=== PATIENT | female | born 1945 | race African-American/Black ===

== ENCOUNTER 2024-05-04 13:27 | Inpatient (IN) | payer OTHER ==
[~2024-05-04] VITALS: Ht 165.1 cm; Wt 72.1 kg
[2024-05-04] MEDS: ACETAMINOPHEN 325MG TABLET PO ONE (14:40)
[2024-05-04 17:37] LABS: BASOPHILS % 0.2 % (0.0-2.0); HEMATOCRIT. 30.7 % (36.0-48.0); HEMOGLOBIN. 10.3 g/dL (12.0-16.0); LYMPHOCYTES % 11.9 % (20.0-50.0); MEAN CORPUSCULAR HEMOGLOBIN 32.3 pg (28.0-32.0); MEAN CORPUSCULAR HGB CONC 33.4 g/dL (31.0-37.0); MEAN CORPUSCULAR VOLUME 96.7 fL (81.0-99.0); MEAN PLATELET VOLUME 7.3 fl (7.4-10.4); MONOCYTES % 8.5 % (2.0-8.0); NEUTROPHILS % 79.4 % (40.0-76.0); PLATELET 306 x1000/uL (130-400); RED BLOOD CELL COUNT 3.18 mill/uL (4.2-5.4); RED CELL DISTRIBUTION WIDTH 15.1 % (11.6-14.6); WHITE BLOOD COUNT 9.5 x1000/uL (4.5-11.0)
[2024-05-04 18:42] LABS: CHLORIDE 107 mEq/L (98-107); POTASSIUM 3.7 mEq/L (3.5-5.1); SODIUM 142 mEq/L (136-145)
[2024-05-04 18:43] LABS: CALCIUM 9.4 mg/dL (8.7-10.4); CARBON DIOXIDE 23 mEq/L (21-32)
[2024-05-04 18:48] LABS: CREATININE 1.1 mg/dL (0.6-1.0); GLUCOSE 115 mg/dL (70-105); UREA NITROGEN BLOOD 29 mg/dL (9-23)
[2024-05-04] MEDS: MORPHINE SULFATE 4 MG/ML INJ (FOR IV/IM USE) IV ONE (18:49)
[2024-05-04 18:50] LABS: ALANINE AMINOTRANSFERASE 58 IU/L (10-49); ALBUMIN 3.5 g/dL (3.2-4.8); ASPARTATE AMINOTRANSFERASE 123 IU/L (<34); CREATINE KINASE > 1300 IU/L (34-145)
[2024-05-04 18:51] LABS: PROTEIN TOTAL 7.1 g/dL (6.0-8.3); TROPONIN I HIGH SENSITIVITY 36 ng/L (3.0-34)
[2024-05-04] MEDS: LACTATED RINGERS 1,000 ML IV SCH ×2 (20:25→21:20)
[2024-05-04] MEDS ORDERED: ONDANSETRON HCL 4MG/2ML INJ IV PRN (20:45)
[2024-05-04] MEDS ORDERED: MAGNESIUM/ALUMINUM HYDROXIDE/SIMETHICONE 30ML UDC PO PRN (20:45)
[2024-05-04] MEDS ORDERED: DOCUSATE SODIUM 100MG CAPSULE PO PRN (20:45)
[2024-05-04] MEDS ORDERED: GUAIFENESIN 200MG/10ML SUGAR FREE UDC PO PRN (20:45)
[2024-05-04] MEDS ORDERED: ACETAMINOPHEN 325MG TABLET PO PRN (20:45)
[2024-05-04] MEDS ORDERED: IPRATROPIUM/ALBUTEROL 0.5-3(2.5)MG/3ML NEB HHN PRN (20:45)
[2024-05-04 21:16] LABS: TROPONIN I HIGH SENSITIVITY 42 ng/L (3.0-34)
[2024-05-04 21:25] LABS: IRON 12 ug/dL (50-170)
[2024-05-04 21:28] LABS: PHOSPHORUS 1.8 mg/dL (2.5-4.9); TOTAL IRON BINDING CAPACITY 157 ug/dl (250-425)
[2024-05-04 21:31] LABS: FERRITIN 154 ng/mL (10-291); FOLIC ACID (FOLATE) SERUM > 20.00 ng/mL (>5.38); VITAMIN B12 SERUM 805 pg/mL (211-911)
[2024-05-04] MEDS: ENOXAPARIN 40MG/0.4ML SYR SUBCUT SCH (21:31)
[2024-05-04] MEDS: CLONIDINE 0.1MG TABLET PO PRN (21:42)
[2024-05-04] MEDS: AMLODIPINE 5MG TABLET PO SCH (21:45)
[2024-05-04] MEDS ORDERED: IOHEXOL-300 100 ML BOTTLE ONE (23:22)
[2024-05-05] VITALS (7 sets, daily range): BP systolic 119–172; BP diastolic 70–85; PULSE 59–152; RESP 15–20; TEMP 98.6–98.9; O2SAT 18
[2024-05-05 01:22] LABS: TROPONIN I HIGH SENSITIVITY 33 ng/L (3.0-34)
[2024-05-05 01:33] LABS: CREATINE KINASE 1795 IU/L (34-145)
[2024-05-05] MEDS: MAGNESIUM 4 G PREMIX 100 ML IV NR (06:39)
[2024-05-05] MEDS: POTASSIUM PHOSPHATE 30 MMOL in SODIUM CHLORIDE 0.9% 490 ML IV NR (06:40)
[2024-05-05 06:51] LABS: CHLORIDE 109 mEq/L (98-107); POTASSIUM 3.8 mEq/L (3.5-5.1); SODIUM 144 mEq/L (136-145)
[2024-05-05 06:52] LABS: CALCIUM 9.3 mg/dL (8.7-10.4); CARBON DIOXIDE 27 mEq/L (21-32)
[2024-05-05] MEDS: ACETAMINOPHEN 325MG TABLET PO PRN (06:53)
[2024-05-05 06:57] LABS: GLUCOSE 96 mg/dL (70-105); TRIGLYCERIDE 66 mg/dL (0-150); UREA NITROGEN BLOOD 28 mg/dL (9-23)
[2024-05-05 06:58] LABS: LDL CHOLESTEROL 81 mg/dL (5-100)
[2024-05-05 06:59] LABS: ALANINE AMINOTRANSFERASE 57 IU/L (10-49); ALBUMIN 3.7 g/dL (3.2-4.8); ASPARTATE AMINOTRANSFERASE 97 IU/L (<34); CHOLESTEROL 165 mg/dL (<200); HDL CHOLESTEROL 58 mg/dL (>65); TROPONIN I HIGH SENSITIVITY 32 ng/L (3.0-34)
[2024-05-05 07:00] LABS: BILIRUBIN TOTAL 0.9 mg/dL (0.1-1.0); PROTEIN TOTAL 7.1 g/dL (6.0-8.3)
[2024-05-05 07:01] LABS: T4 FREE 1.38 ng/dL (0.89-1.76)
[2024-05-05 07:02] LABS: THYROID STIMULATING HORMONE 2.32 uIU/mL (0.55-4.78)
[2024-05-05 07:14] LABS: CREATINE KINASE 1526 IU/L (34-145)
[2024-05-05 07:15] LABS: BASOPHILS % 0.2 % (0.0-2.0); EOSINOPHILS % 0.5 % (0.0-5.0); HEMATOCRIT. 29.2 % (36.0-48.0); HEMOGLOBIN. 9.7 g/dL (12.0-16.0); LYMPHOCYTES % 17.7 % (20.0-50.0); MEAN CORPUSCULAR HEMOGLOBIN 31.7 pg (28.0-32.0); MEAN CORPUSCULAR HGB CONC 33.1 g/dL (31.0-37.0); MONOCYTES % 11.3 % (2.0-8.0); NEUTROPHILS % 70.3 % (40.0-76.0); PLATELET 315 x1000/uL (130-400); RED BLOOD CELL COUNT 3.04 mill/uL (4.2-5.4); RED CELL DISTRIBUTION WIDTH 15.3 % (11.6-14.6); WHITE BLOOD COUNT 7.4 x1000/uL (4.5-11.0)
[2024-05-05] MEDS: THIAMINE HCL 100MG TABLET PO SCH (08:58)
[2024-05-05 12:46] LABS: TROPONIN I HIGH SENSITIVITY 22 ng/L (3.0-34)
[2024-05-05 12:47] LABS: CREATINE KINASE 1290 IU/L (34-145)
[2024-05-05 13:45] LABS: CLARITY URINE CLEAR (CLEAR); COLOR URINE DARK YELLOW (YELLOW); GLUCOSE URINE NEGATIVE (NEGATIVE); KETONES URINE TRACE (NEGATIVE); LEUKOCYTE ESTERASE URINE 1+ (NEGATIVE); NITRITE URINE NEGATIVE (NEGATIVE); OCCULT BLOOD URINE TRACE (NEGATIVE); PH URINE 5.5 (4.5-8.0); PROTEIN URINE 1+ (NEGATIVE); SPECIFIC GRAVITY URINE 1.045 (1.005-1.030)
[2024-05-05 14:02] LABS: *AMPHETAMINES SCREEN URINE NEGATIVE (NEGATIVE); *BARBITURATES SCREEN URINE NEGATIVE (NEGATIVE); *BENZODIAZEPINES SCREEN URINE NEGATIVE (NEGATIVE); *COCAINE SCREEN URINE NEGATIVE (NEGATIVE); CANNABINOID URINE SCREEN NEGATIVE (NEGATIVE); METHADONE URINE SCREEN NEGATIVE (NEGATIVE); OPIATES URINE SCREEN PRESUMPTIVE POSITIVE (NEGATIVE); PHENCYCLIDINE URINE SCREEN NEGATIVE (NEGATIVE)
[2024-05-05 14:03] LABS: ECSTASY MDMA SCREEN URINE NEGATIVE (NEGATIVE)
[2024-05-05 14:13] LABS: CALCIUM OXALATE CRYSTALS URINE 1+ /lpf; SQUAMOUS EPITHELIAL CELL URINE 1+ /lpf (RARE/1+)
[2024-05-05 14:14] LABS: BACTERIA URINE 3+; RBC URINE 0-2 /hpf (0-2)
[2024-05-05] MEDS ORDERED: GABA-532 PO (14:38)
[2024-05-05] MEDS: CEFTRIAXONE 1GM/50ML 50 ML IV SCH (18:29)
== END 2024-05-05 19:06 | disposition short-term general hospital (02) | DRG 557 ==
LOC: ER 13:27 → 5WST 19:20 → EDBEDREQTM 19:24 → EDBEDREQ 19:24 → 3WST 05-05 04:44
PROVIDERS: ADMIT Internal Medicine; ATTEND Internal Medicine
DX: M62.82 Rhabdomyolysis (principal); I21.A1 Myocardial infarction type 2; N17.0 Acute kidney failure with tubular necrosis; M48.56XA Collapsed vertebra, not elsewhere classified, lumbar region, initial encounter for fracture; I13.0 Hypertensive heart and chronic kidney disease with heart failure and stage 1 through stage 4 chronic kidney disease, or unspecified chronic kidney disease; N39.0 Urinary tract infection, site not specified; D64.9 Anemia, unspecified; I50.9 Heart failure, unspecified; R74.01 Elevation of levels of liver transaminase levels; E83.39 Other disorders of phosphorus metabolism; I87.8 Other specified disorders of veins; N18.9 Chronic kidney disease, unspecified; E83.42 Hypomagnesemia; K57.30 Diverticulosis of large intestine without perforation or abscess without bleeding; K76.89 Other specified diseases of liver; M47.812 Spondylosis without myelopathy or radiculopathy, cervical region; M43.17 Spondylolisthesis, lumbosacral region; W18.39XA Other fall on same level, initial encounter; Y93.89 Activity, other specified; Z79.899 Other long term (current) drug therapy; Y92.89 Other specified places as the place of occurrence of the external cause; Y99.8 Other external cause status
CPT/HCPCS: 36415; 71260; 72170; 73060; 73070; 73100; 73120; 73560; 73590; 73620; 74177; 80053; 80061; 80305; 81003; 82306; 82550; 82607; 82728; 82746; 83036; 83540; 83550; 83735; 83880; 84100; 84439; 84443; 84484; 85025; 87070; 93005; 93306; 93880; 93923; 93970; 97162; 99291; A6261; J0696; J1650; J2270; J3475; J3490; J7040; J7120; Q9967

== ENCOUNTER 2025-06-09 16:04 | Emergency (ER) | payer OTHER ==
[~2025-06-09] VITALS: Ht 165.1 cm; Wt 80.0 kg
[~2025-06-09 16:04] MED LIST: GABA-1180 PO
[2025-06-09 16:08] VITALS: O2SAT 100
[2025-06-09] MEDS: ACETAMINOPHEN 325MG TABLET PO ONE (16:25)
[2025-06-09 16:41] LABS: HEMOGLOBIN. 8.0 g/dL (12.0-16.0); MEAN PLATELET VOLUME 6.3 fl (7.4-10.4)
[2025-06-09 16:43] LABS: HEMATOCRIT. 24.1 % (36.0-48.0); PLATELET 368 x1000/uL (130-400); RED BLOOD CELL COUNT 2.56 mill/uL (4.2-5.4); RED CELL DISTRIBUTION WIDTH 16.6 % (11.6-14.6)
[2025-06-09 16:58] LABS: INR 1.1
[2025-06-09 17:01] LABS: BAND% 1.0 % (1.0-6.0); EOSINOPHILS % MANUAL 1.0 % (0.0-5.0); LYMPHOCYTES % MANUAL 8.0 % (20.0-60.0); MONOCYTES % MANUAL 4.0 % (2.0-8.0); NEUTROPHILS % MANUAL 86.0 % (45.0-75.0); PLATELET ESTIMATE NORMAL
[2025-06-09 17:03] LABS: UREA NITROGEN BLOOD 33 mg/dL (9-23)
[2025-06-09 17:05] LABS: ASPARTATE AMINOTRANSFERASE 186 IU/L (<34); BILIRUBIN DIRECT 0.1 mg/dL (<=3.0)
[2025-06-09 17:06] LABS: BILIRUBIN TOTAL 0.6 mg/dL (0.1-1.0); PROTEIN TOTAL 6.8 g/dL (6.0-8.3)
[2025-06-09 17:14] LABS: CREATININE 1.9 mg/dL (0.6-1.0)
[2025-06-09] MEDS: SODIUM CHLORIDE 0.9% 1,000 ML IV ONE (18:38)
[2025-06-09] MEDS: ONDANSETRON HCL 4MG/2ML INJ IV ONE (21:14)
[2025-06-09 21:41] VITALS: BP 152/58; PULSE 99; RESP 20; TEMP 37.2; O2SAT 99
== END 2025-06-09 22:17 | disposition short-term general hospital (02) ==
LOC: ER 16:04 → CANBEDREQ 18:33 → ER 22:17
DX: M25.551 Pain in right hip (principal); M17.11 Unilateral primary osteoarthritis, right knee; N17.9 Acute kidney failure, unspecified; I10 Essential (primary) hypertension; W06.XXXA Fall from bed, initial encounter; Y93.89 Activity, other specified; Y92.89 Other specified places as the place of occurrence of the external cause; Y99.8 Other external cause status
CPT/HCPCS: 99291; 96374; 72192; 96361; 80076; 80048; 85025; 85610; 85730; 86850; 86900; 86901; 36415; 73502; 71045; 73562; 73610; 93005; J2405; J7030